=== PATIENT | female | born 1950 | race Caucasian/White ===

== ENCOUNTER 2016-12-13 10:21 | Day surgery (SDC) | payer MEDICARE, BC ==
--- NOTE | ~2016-12-13 | EGD ---
EGD REPORT [facility] [address] [id number] NAME: SARAH CARLISLE : [birth year] STATUS : [facility] [place] PAT#: [id number] AGE: 66 ADM/REG DATE : 12/13/16 MR#: [id number] REPORT SERV DATE: 12/13/16 DICTATED BY: DIAMANTE ALLEN DATE: 12/13/16 REPORT STATUS : Draft TRANSCRIBED BY: [employer] DATE: 12/13/16 [facility] Patient Name: Sarah Carlisle Date of : 1950 Attending MD: DIAMANTE ALLEN MD Procedure Date No Time: 12/13/2016 Procedure: Colonoscopy Indications: High risk colon cancer surveillance: Personal history of colonic polyps, Last colonoscopy: September 2012 Referring MD: ELIZABETH KEY MD Medicines: See the Anesthesia note for documentation of the administered medications Complications: No immediate complications. Procedure: Pre-Anesthesia Assessment: - ASA Grade Assessment: III - A patient with severe systemic disease. After I obtained informed consent, the scope was passed under direct vision. Throughout the procedure, the patient's blood pressure, pulse, and oxygen saturations were monitored continuously. The CF [id number] was introduced through the anus and advanced to the cecum, identified by appendiceal orifice and ileocecal valve. The colonoscopy was performed without difficulty. The patient tolerated the procedure well. The quality of the bowel preparation was adequate. Min fecal debris. Findings: The perianal and digital rectal examinations were normal. Internal hemorrhoids were found during retroflexion and were small. A sessile polyp was found in the cecum. The polyp was small in size. The polyp was removed with a cold biopsy forceps. Resection and retrieval were complete. Impression: - Internal hemorrhoids. - One small polyp in the cecum. Resected and retrieved. Recommendation: - Patient has a contact number available for emergencies. The signs and symptoms of potential delayed complications were discussed with the patient. Return to normal activities tomorrow. Written discharge instructions were provided to the patient. - Regular diet. - Continue present medications. - Repeat colonoscopy in 3 years for surveillance. - FOR YOUR BIOPSY RESULTS: Please go to EGD REPORT [address] [address] NAME: SARAH CARLISLE : [birth year] STATUS : [facility] [place] PAT#: [id number] AGE: 66 ADM/REG DATE : 12/13/16 MR#: [id number] REPORT SERV DATE: 12/13/16 DICTATED BY: DIAMANTE ALLEN DATE: 12/13/16 REPORT STATUS : Draft TRANSCRIBED BY: [email or web address] DATE: 12/13/16 [email or web address] and register to receive your results via the portal. Your biopsy results will be posted there in about 7 to 10 days. IF you do not see result in 10 days, call office. Procedure Code(s): --- Professional --- 43839, Colonoscopy, flexible, proximal to splenic flexure; with biopsy, single or multiple Diagnosis Code(s): --- Professional --- K64.8, Other hemorrhoids D12.0, Benign neoplasm of cecum Z86.010, Personal history of colonic polyps CPT copyright 2013 [employer]. All rights reserved. The codes documented in this report are preliminary and upon ladle patcher review may be revised to meet current compliance requirements. Diamante Allen MD DIAMANTE ALLEN MD 12/13/2016 11:46 AM This report has been signed electronically. Number of Addenda: 0 Note Initiated On: 12/13/2016 11:15 AM Scope Withdrawal Time 0 hours 8 minutes 3 seconds [address] [id number]
[~2016-12-13 10:21] MED LIST: ADVAIR INH; ADVAIR250 INH; ALLEGRA180 PO; ASAB PO; AUG500 PO; BUSPAR15 M1 PO; BUSPAR30 MG PO; FLEX PO; FLUTICASONE TOP; GLUCPH PO; IMDUR30 PO; KLONO1 PO; KLONOPIN WAF1 MG PO; LEVOTHYROXIN100 MCG PO; LEVOTHYROXIN88 MCG PO; LOP25 PO; MCZ125 PO; NAP375 PO; NAP500 PO; NEUR100 PO; PR25 PO; PRAVAC PO; PREV15 PO; PREV30 PO; PRIN10 PO; PRISTIQ50 MG PO; PROAIR HFA INH; SUDAFED 60 MG T60 MG OR; VITAMIN B-122500 MCG SL; VITAMIN D1000 UNI1 PO; VITAMIN D2000 UNIT PO; VITAMIN D31000 UNIT PO; ZOL100 PO; [UNRECOGNIZED DRUG - OTHER] TOP; [UNRECOGNIZED DRUG - REMARK]
== END 2016-12-13 23:59 | disposition home or self-care (01) ==
LOC: DMU 10:21
PROVIDERS: Internal Medicine Gastroenterology
PROC: 0DBH8ZZ Excision of Cecum, Via Natural or Artificial Opening Endoscopic (ICD-10-PCS; principal; 2016-12-13 12:00)
DX: Z12.11 Encounter for screening for malignant neoplasm of colon (principal); D12.0 Benign neoplasm of cecum; K64.8 Other hemorrhoids; I10 Essential (primary) hypertension; J45.909 Unspecified asthma, uncomplicated; E11.9 Type 2 diabetes mellitus without complications; E03.9 Hypothyroidism, unspecified; E78.00 Pure hypercholesterolemia, unspecified; F41.9 Anxiety disorder, unspecified; F32.9 Major depressive disorder, single episode, unspecified; K21.9 Gastro-esophageal reflux disease without esophagitis; M19.90 Unspecified osteoarthritis, unspecified site; G47.33 Obstructive sleep apnea (adult) (pediatric); Z99.81 Dependence on supplemental oxygen; Z86.010 Personal history of colon polyps; Z86.711 Personal history of pulmonary embolism; Z90.49 Acquired absence of other specified parts of digestive tract
CPT/HCPCS: 82962; 88305